=== PATIENT | female | born 1945 | race Caucasian/White ===

== ENCOUNTER → 2018-12-04 | Outpatient (CLI) | payer OTHER | LOC: M.RAD 14:41 | DX: R50.9 Fever, unspecified (principal); Z90.12 Acquired absence of left breast and nipple ==

== ENCOUNTER → 2018-12-14 | Outpatient (CLI) | payer OTHER | LOC: M.RAD 13:28 | DX: R91.8 Other nonspecific abnormal finding of lung field (principal) ==

== ENCOUNTER → 2019-06-25 | Outpatient (CLI) | payer OTHER ==
--- NOTE | ~2019-06-25 | EEG ---
[address] [address] EEG STUDY REPORT Name: MICHELLE BLACKWOOD Room: [facility]#: [id number] Admission: 06/25/19 Attend Phys: Reed Arciniega MD Discharge: Date of : 45 Report #: [id number] THIS REPORT FOR: //name// CC: Ana Arciniega DATE OF SERVICE: 06/25/2019 This patient indicates she had an episode of seizure. EEG was done by placing the electrodes by standard 10-20 system of electrode placement. Both referential and sequential montages were used for recording. Background activity in this patient's EEG is about 10-11 Hz and 30 microvolt. The patient became drowsy that is associated with bilateral slowing and vertex sharp waves. Photic stimulation was unremarkable. Throughout the record, no active epileptiform activity was noticed. IMPRESSION: This patient's EEG is unremarkable and does not demonstrate any clear-cut epileptiform activity. Thank you very much for this referral. By: [id number] Arciniega MD /nt
[2019-06-25 10:29] LABS: CALCIUM 8.9 mg/dL (8.5-10.1); CREATININE 0.6 mg/dL (0.6-1.3); MAGNESIUM 1.7 mg/dL (1.8-2.4); POTASSIUM 3.8 mmol/L (3.5-5.1)
== END ==
LOC: M.CRD 08:41
PROVIDERS: Psychiatry & Neurology Neuromuscular Medicine
DX: R55 Syncope and collapse (principal); I10 Essential (primary) hypertension